=== PATIENT | male | born 1990 | race Caucasian/White ===

== ENCOUNTER 2016-11-24 07:29 | Emergency (ER) | payer MEDICAID ==
[~2016-11-24] VITALS: Ht 177.8 cm; Wt 78.0 kg
[~2016-11-24 07:29] MED LIST: CYCL1TAB29 PO; NAPR500T PO
[2016-11-24 07:32] VITALS: BP 105/55; PULSE 80; RESP 20; TEMP 98; O2SAT 100
[2016-11-24 07:39] VITALS: BP 118/67; PULSE 85; RESP 16; O2SAT 100
[2016-11-24] MEDS ORDERED: SODIUM CHLOR 0.9% 1000 ML INJ 1,000 ML IV SCH (07:53)
[2016-11-24] MEDS ORDERED: ONDANSETRON HCL 4 MG/2 ML VIAL IVP ONE (08:00)
[2016-11-24] MEDS ORDERED: LOPERAMIDE HCL 2 MG CAP PO ONE (08:00)
[2016-11-24] MEDS ORDERED: DICYCLOMINE HCL 20 MG/2 ML VIAL IM ONE (08:00)
[2016-11-24] MEDS ORDERED: SODIUM CHLORIDE 0.9% FLUSH 5 ML FLUSH IVF PRN (08:00)
[2016-11-24] MEDS ORDERED: KETOROLAC TROMETHAMINE 30 MG/ML (IVP) VIAL IV PUSH STA (08:00)
[2016-11-24] MEDS ORDERED: ZOFR4TAB3 SL (08:11)
[2016-11-24] MEDS ORDERED: LOPE2TAB3 PO (08:11)
[2016-11-24] MEDS ORDERED: BENT20TA PO (08:11)
--- NOTE | 2016-11-24 08:11 | PD ---
HPI Chief Complaint: GI Complaint Time Seen by Provider: 07:35 Travel History International Travel<30 days: No Contact w/Intl Traveler<30days: No Traveled to known affect area: No History of Present Illness HPI 26-year-old man, no past medical history, presents emergency department with nausea vomiting diarrhea abdominal cramping and generalized myalgias starting last night. He ate at the [employer] [facility] last night with his kids and woke up and melena vomiting diarrhea and cramping. He describes severe abdominal pain and cramping as well as severe 10 out of 10 pain throughout his entire body. No fevers. No blood in his stools. No history of previous similar symptoms. States his had a little bit of vomiting this morning but not as sick as he is. History Past Medical History Medical History: Denies Significant Hx Tetanus Vaccination: < 5 Years Past Surgical History Surgical History: No Previous Surgery Social History Alcohol Use: No Tobacco Use: No Allergies-Medications (Allergen,Severity, Reaction): Coded Allergies: No Known Allergies (Verified , 11/24/16) Reported Meds & Prescriptions Reported Meds & Active Scripts Active Loperamide (Loperamide HCl) 2 Mg Tab 2 Mg PO DIRECTED PRN One tablet after each loose stool. Not to exceed 8 tablets per day. Bentyl (Dicyclomine HCl) 20 Mg Tab 20 Mg PO QID PRN Zofran Odt (Ondansetron Odt) 4 Mg Tab 4 Mg SL Q8HR PRN May substitute non-ODT form. Review of Systems Except as stated in HPI: all other systems reviewed are Neg Physical Exam Narrative GENERAL: 26-year-old man, uncomfortable but nontoxic. SKIN: Warm and dry. CARDIOVASCULAR: Regular rate and rhythm. No murmur appreciated. RESPIRATORY: No accessory muscle use. Clear to auscultation. Breath sounds equal bilaterally. GASTROINTESTINAL: Abdomen is flat and soft. Moderate diffuse tenderness with voluntary guarding. No peritonitis. MUSCULOSKELETAL: No obvious deformities. No edema. NEUROLOGICAL: Awake and alert. No obvious cranial nerve deficits. Motor grossly within normal limits. Normal speech. PSYCHIATRIC: Appropriate mood and affect; insight and judgment normal. Data Data Last Documented VS Vital Signs Date Time Temp Pulse Resp B/P Pulse Ox O2 Delivery O2 Flow Rate FiO2 11/24/16 07:39 85 16 118/67 100 11/24/16 07:32 98.0 Room Air Orders Complete Blood Count With Diff (11/24/16 07:53) Comprehensive Metabolic Panel (11/24/16 07:53) Lipase (11/24/16 07:53) Iv Access Insert/Monitor (11/24/16 07:53) Ondansetron Inj (Zofran Inj) (11/24/16 08:00) Sodium Chlor 0.9% 1000 Ml Inj (Ns 1000 M (11/24/16 07:53) Sodium Chloride 0.9% Flush (Ns Flush) (11/24/16 08:00) Dicyclomine Inj (Bentyl Inj) (11/24/16 08:00) Loperamide (Imodium) (11/24/16 08:00) Ketorolac Inj (Toradol Inj) (11/24/16 08:00) Labs Laboratory Tests Test 11/24/16 08:13 White Blood Count 11.5 TH/MM3 Red Blood Count 4.76 MIL/MM3 Hemoglobin 14.7 GM/DL Hematocrit 42.6 % Mean Corpuscular Volume 89.5 FL Mean Corpuscular Hemoglobin 30.8 PG Mean Corpuscular Hemoglobin 34.5 % Concent Red Cell Distribution Width 12.8 % Platelet Count 165 TH/MM3 Mean Platelet Volume 9.2 FL Neutrophils (%) (Auto) 91.5 % Lymphocytes (%) (Auto) 4.6 % Monocytes (%) (Auto) 3.3 % Eosinophils (%) (Auto) 0.4 % Basophils (%) (Auto) 0.2 % Neutrophils # (Auto) 10.5 TH/MM3 Lymphocytes # (Auto) 0.5 TH/MM3 Monocytes # (Auto) 0.4 TH/MM3 Eosinophils # (Auto) 0.0 TH/MM3 Basophils # (Auto) 0.0 TH/MM3 CBC Comment DIFF FINAL Differential Comment Sodium Level 141 MEQ/L Potassium Level 3.5 MEQ/L Chloride Level 106 MEQ/L Carbon Dioxide Level 25.3 MEQ/L Anion Gap 10 MEQ/L Blood Urea Nitrogen 13 MG/DL Creatinine 0.88 MG/DL Estimat Glomerular Filtration 106 ML/MIN Rate Random Glucose 127 MG/DL Calcium Level 9.1 MG/DL Total Bilirubin 0.9 MG/DL Aspartate Amino Transf 11 U/L (AST/SGOT) Alanine Aminotransferase 17 U/L (ALT/SGPT) Alkaline Phosphatase 65 U/L Total Protein 7.6 GM/DL Albumin 4.1 GM/DL Lipase 101 U/L [facility] Medical Decision Making Medical Screen Exam Complete: Yes Emergency Medical Condition: Yes Interpretation(s) LABS: CBC remarkable for minimal leukocytosis. CMP is unremarkable Lipase is normal Differential Diagnosis Gastroenteritis, gastritis, appendicitis, colitis, opiate withdrawal, other Narrative Course Medical decision making 26 old male nausea vomiting diarrhea abdominal cramping and myalgias. Looks well. He does have a lot of abdominal tenderness diffusely, without any focality. Likely has appendicitis. He's been in the emergency department without calling gastritis in the past. He attributes it to food poisoning or possibly gastroenteritis. Given the tenderness, we'll check some labs. Vital signs are unremarkable. Likely supportive treatment. Diagnosis Primary Impression: Nausea vomiting and diarrhea Additional Instructions: Use Zofran as needed for nausea or vomiting. Use Bentyl as needed for abdominal cramping. Use loperamide as needed for diarrhea. Follow-up with your primary doctor for not completely well in the next 2-3 days. Return to the emergency department for any worsening abdominal pain, bloody diarrhea, or high fevers. Med/Other Pt SpecificInfo: Prescription(s) given, No Change to Meds Scripts Loperamide 2 Mg Tab2 Mg PO DIRECTED PRN (DIARRHEA) #8 TAB One tablet after each loose stool. Not to exceed 8 tablets per day. Prov:Jamie Kim MD 11/24/16 Dicyclomine (Bentyl)20 Mg Tab20 Mg PO QID PRN (ABDOMINAL CRAMPING) #20 TAB Prov:Jamie Kim MD 11/24/16 Ondansetron Odt (Zofran Odt)4 Mg Tab4 Mg SL Q8HR PRN (Nausea/Vomiting) #15 TAB May substitute non-ODT form. Prov:Jamie Kim MD 11/24/16 Disposition: 01 DISCHARGE HOME Condition: Stable Jamie Kim MD Nov 24, 2016 08:11
[2016-11-24 08:21] LABS: AUTOMATED NEUTROPHIL # 10.5 TH/MM3 (1.8-7.7); BASOPHIL % 0.2 % (0.0-2.0); EOSINOPHIL % 0.4 % (0.0-4.0); HEMATOCRIT 42.6 % (39.0-51.0); HEMO FLAGS DIFF FINAL; LYMPH % 4.6 % (9.0-44.0); LYMPHOCYTE # 0.5 TH/MM3 (1.0-4.8); MEAN CELL VOLUME 89.5 FL (80.0-100.0); MEAN CORPUSCULAR HEMOGLOBIN 30.8 PG (27.0-34.0); MEAN CORPUSCULAR HGB CONC 34.5 % (32.0-36.0); MONO % 3.3 % (0.0-8.0); NEUT % 91.5 % (16.0-70.0); PLATELET COUNT 165 TH/MM3 (150-450); RED BLOOD COUNT 4.76 MIL/MM3 (4.50-5.90); RED CELL DISTRIBUTION WIDTH 12.8 % (11.6-17.2); WHITE BLOOD COUNT 11.5 TH/MM3 (4.0-11.0)
[2016-11-24 08:30] VITALS: BP 108/60; PULSE 60; RESP 16; O2SAT 99
[2016-11-24 08:38] LABS: ALT (GPT) 17 U/L (12-78); ANION GAP 10 MEQ/L (5-15); AST (GOT) 11 U/L (15-37); BICARBONATE 25.3 MEQ/L (21.0-32.0); BLOOD UREA NITROGEN 13 MG/DL (7-18); CHLORIDE 106 MEQ/L (98-107); GLOMERULAR FILTRATION RATE 106 ML/MIN (>89); POTASSIUM 3.5 MEQ/L (3.5-5.1); SODIUM (NA) 141 MEQ/L (136-145)
[2016-11-24 08:41] LABS: ALKALINE PHOSPHATASE 65 U/L (45-117); TOTAL BILIRUBIN ADULT 0.9 MG/DL (0.2-1.0)
== END 2016-11-24 09:14 | disposition home or self-care (01) ==
LOC: NEPC 07:29
DX: R11.2 Nausea with vomiting, unspecified (principal); R19.7 Diarrhea, unspecified; R10.9 Unspecified abdominal pain; M79.1 Myalgia
CPT/HCPCS: 80053; 83690; 85025; 96361; 96372; 96374; 96375; 99284; J0500; J1885; J2405; J7030

== ENCOUNTER 2017-01-24 23:08 | Emergency (ER) | payer MEDICAID ==
[~2017-01-24] VITALS: Ht 177.8 cm; Wt 73.0 kg
[~2017-01-24 23:08] MED LIST changes: +BENT20TA PO; -CYCL1TAB29 PO; +LOPE2TAB3 PO; -NAPR500T PO; +ZOFR4TAB3 SL
[2017-01-24 23:12] VITALS: BP 118/82; PULSE 104; RESP 16; TEMP 99.2; O2SAT 100
--- NOTE | 2017-01-24 23:44 | PD ---
HPI Chief Complaint: ENT Complaint Time Seen by Provider: 23:41 Travel History International Travel<30 days: No Contact w/Intl Traveler<30days: No Traveled to known affect area: No History of Present Illness HPI 26-year-old male presents to emergency department with a three-day history of sore throat, fever chills, ear pain, cough, slight sputum production , nausea, vomiting, myalgias, arthralgias or general malaise. He states that he has not been able to eat for 3 days due to sore throat. He denies any abdominal pain. No dysuria or frequency. No diarrhea. No rashes or lesions. PFSH Past Medical History Narrative Medical Close head injury, chronic back pain Hx Anticoagulant Therapy: No Cardiovascular Problems: No Chemotherapy: No Cerebrovascular Accident: No Diabetes: No Diminished Hearing: No Respiratory: No Tetanus Vaccination: < 5 Years Past Surgical History Surgical History: No Previous Surgery Hysterectomy: No Social History Alcohol Use: No Tobacco Use: No Substance Use: Yes (MARIJUANA) Allergies-Medications (Allergen,Severity, Reaction): Coded Allergies: No Known Allergies (Verified , 01/24/17) Reported Meds & Prescriptions Reported Meds & Active Scripts Active Magic Mouthwash Adult Liq (Multi-Ingredient Mouthwash/Gargle) 120 Ml Susp 5 Ml SWISH-SWAL Q2HR Each 5mL contains: Nystatin 200,000units, Diphenhydramine 4.25mg, Viscous Lidocaine 10mg, Beauchamp syrup 0.8 mL Deltasone (Prednisone) 20 Mg Tab 20 Mg PO BID Loperamide (Loperamide HCl) 2 Mg Tab 2 Mg PO DIRECTED PRN One tablet after each loose stool. Not to exceed 8 tablets per day. Bentyl (Dicyclomine HCl) 20 Mg Tab 20 Mg PO QID PRN Zofran Odt (Ondansetron Odt) 4 Mg Tab 4 Mg SL Q8HR PRN May substitute non-ODT form. Review of Systems Except as stated in HPI: all other systems reviewed are Neg Physical Exam Narrative GENERAL: Well-developed, well-nourished in no acute distress. Nontoxic appearing. HEAD: Normocephalic, atraumatic. EYES: Pupils equal round and reactive. Extraocular motions intact. No scleral icterus. No injection or drainage. ENT: TMs clear without erythema. The external auditory canals clear. Nose: clear . Posterior pharynx is erythematous and moist. Positive tonsillar edema but no white exudate. Uvula midline. Airway patent. NECK: Trachea midline.Supple, nontender, moves head freely. No central bony tenderness or spasm. Positive cervical and tonsillar adenopathy CARDIOVASCULAR: Regular rate and rhythm without murmurs, gallops, or rubs. RESPIRATORY: Clear to auscultation. Breath sounds equal bilaterally. No wheezes , rales, or rhonchi. GASTROINTESTINAL: Abdomen soft, non-tender, nondistended. No hepato-splenomegaly , or palpable masses. No guarding. EXTREMITIES: No clubbing, cyanosis, or edema. No joint tenderness, effusion, or edema noted. BACK: Nontender without deformity or crepitance. No flank tenderness. Data Data Last Documented VS Vital Signs Date Time Temp Pulse Resp B/P Pulse Ox O2 Delivery O2 Flow Rate FiO2 01/24/17 23:12 99.2 104 16 118/82 100 Room Air Orders Influenzae A/B Antigen (01/24/17 23:39) Group A Rapid Strep Screen (01/24/17 23:39) Strep Culture (Group A) (01/24/17 23:52) Prednisone (Deltasone) (01/25/17 01:00) Al-Mag Hy-Si 40-40-4 Mg/Ml Liq (Mag-Al P (01/25/17 01:00) Lidocaine 2% Viscous (Xylocaine 2% Visco (01/25/17 00:54) MDM Medical Decision Making Medical Screen Exam Complete: Yes Emergency Medical Condition: Yes Medical Record Reviewed: Yes Interpretation(s) Rapid strep: Negative Influenza: Negative Differential Diagnosis MDM: High Differential diagnoses: Pneumonia, bronchitis, URI, influenza, strep throat Narrative Course Patient's given prednisone 40 mg and Maalox 30 mL and viscous lidocaine 10 mL by mouth This is acute viral pharyngitis, influenza-like illness Diagnosis Primary Impression: Acute viral pharyngitis Additional Impression: Influenza-like illness Patient Instructions: General Instructions Additional Instructions: Rest. Force fluids. Saltwater gargles. Tylenol and Advil. Chloraseptic [place] Cepastat lozenge. Prednisone and Magic mouthwash. Follow-up with a primary care doctor in one week. Return to the ER if any problems. Med/Other Pt SpecificInfo: Prescription(s) given Scripts Akbaxnik-Ljmxdabiyrfrphr-Bgrtqmuls Liq (Magic Mouthwash Adult Liq)120 Ml Susp5 Ml SWISH-SWAL Q2HR #120 ML Each 5mL contains: Nystatin 200,000units, Diphenhydramine 4.25mg, Viscous Lidocaine 10mg, Beauchamp syrup 0.8 mL Prov:Rosa Mann MD 01/25/17 Prednisone (Deltasone)20 Mg Tab20 Mg PO BID #10 TAB Prov:Rosa Mann MD 01/25/17 Disposition: 01 DISCHARGE HOME Condition: Stable Segundo Van Jan 24, 2017 23:44
[2017-01-25] MEDS ORDERED: MAGICADU2 SWISH-SWAL (00:54)
[2017-01-25] MEDS ORDERED: LIDOCAINE VISCOUS 2% SOLN 15 ML UDC SWISH-SWAL STA (00:54)
[2017-01-25] MEDS ORDERED: PRED-503 PO (00:54)
[2017-01-25] MEDS ORDERED: ALUMINUM/MAGNESIUM/SIMETH 30 ML CUP PO ONE (01:00)
[2017-01-25] MEDS ORDERED: predniSONE 20 MG TAB PO ONE (01:00)
== END 2017-01-25 02:57 | disposition home or self-care (01) ==
LOC: NEPB 23:08
DX: J02.8 Acute pharyngitis due to other specified organisms (principal); J00 Acute nasopharyngitis [common cold]
CPT/HCPCS: 87081; 87804; 87880; 99283; J7512

== ENCOUNTER 2017-05-31 16:55 | Emergency (ER) | payer MEDICAID ==
[~2017-05-31] VITALS: Ht 177.8 cm; Wt 78.0 kg
[~2017-05-31 16:55] MED LIST changes: +MAGICADU2 SWISH-SWAL; +PRED-503 PO
[2017-05-31 16:56] VITALS: BP 113/69; PULSE 87; RESP 14; TEMP 98; O2SAT 99
--- NOTE | 2017-05-31 17:59 | PD ---
HPI Chief Complaint: Complaint Time Seen by Provider: 17:34 Travel History International Travel<30 days: No Contact w/Intl Traveler<30days: No Traveled to known affect area: No History of Present Illness HPI 27-year-old male here with his girlfriend for evaluation of dysuria and right inguinal pain. Patient reports history of chlamydia infection for which he was treated about a year ago. For the last 2 days he has been having dysuria and penile discharge. Since yesterday he has been having extreme pain on the tip of his penis/foreskin and has noticed tiny punctate lesions. He has been applying hydrogen peroxide to this area, however this causes increased pain. Patient also reports in his right inguinal area there is a lump that is painful. No fevers or chills. No nausea or vomiting. Last bowel movement was earlier today. PFSH Past Medical History Medical History: Denies Significant Hx Hx Anticoagulant Therapy: No Cardiovascular Problems: No Chemotherapy: No Cerebrovascular Accident: No Diabetes: No Diminished Hearing: No Respiratory: No Past Surgical History Surgical History: No Previous Surgery Hysterectomy: No Social History Alcohol Use: Yes (occ) Tobacco Use: No Substance Use: Yes (MARIJUANA) Allergies-Medications (Allergen,Severity, Reaction): Coded Allergies: No Known Allergies (Verified , 05/31/17) Reported Meds & Prescriptions Reported Meds & Active Scripts Active No Active Prescriptions or Reported Medications Review of Systems Except as stated in HPI: all other systems reviewed are Neg Physical Exam Narrative GENERAL: Well-developed, well-nourished, no apparent distress. SKIN: Focused skin assessment warm/dry. No rash on palms. CARDIOVASCULAR: Regular rate and rhythm. RESPIRATORY: No accessory muscle use. GASTROINTESTINAL: Abdomen soft, non-tender, nondistended. : Normal scrotum and testicles without masses, without skin color changes, without tenderness. Tip of penis with moderate amount of yellowish discharge. Foreskin with several small approximately 1 mm ulcerations. No vesicular lesions. Bilateral inguinal regions with palpable/tender lymphadenopathy. MUSCULOSKELETAL: No obvious deformities. No clubbing. No cyanosis. No edema. NEUROLOGICAL: Awake and alert. No obvious cranial nerve deficits. Motor grossly within normal limits. Normal speech. PSYCHIATRIC: Appropriate mood and affect; insight and judgment normal. Data Data Last Documented VS Vital Signs Date Time Temp Pulse Resp B/P Pulse Ox O2 Delivery O2 Flow Rate FiO2 05/31/17 17:08 18 7/23/17 16:56 98.0 87 113/69 99 Orders Basic Metabolic Panel (Bmp) (05/31/17 17:49) Complete Blood Count With Diff (05/31/17 17:49) Iv Access Insert/Monitor (05/31/17 17:49) Ecg Monitoring (05/31/17 17:49) Oximetry (05/31/17 17:49) Sodium Chloride 0.9% Flush (Ns Flush) (05/31/17 18:00) Rapid Plasmin Reagin Screen (05/31/17 17:49) Urinalysis - C+S If Indicated (05/31/17 17:49) Gc And Chlamydia Pcr (05/31/17 17:49) Azithromycin Powd Pack (Zithromax Powd P (05/31/17 18:00) Ceftriaxone Inj (Rocephin Inj) (05/31/17 18:00) Lidocaine 1% Inj (50 Ml) (Xylocaine 1% I (05/31/17 18:00) Ketorolac Inj (Toradol Inj) (05/31/17 18:00) Hsv 1,2 Abs Igm (05/31/17 17:49) Lidocaine 2% Jelly (Xylocaine 2% Jelly) (05/31/17 18:00) Acetamin-Hydrocod 325-5 Mg (Thomas 5-325 (05/31/17 19:15) Urine Culture (05/31/17 18:45) Labs Laboratory Tests Test 05/31/17 05/31/17 18:15 18:45 White Blood Count 6.3 TH/MM3 Red Blood Count 4.43 MIL/MM3 Hemoglobin 14.2 GM/DL Hematocrit 41.0 % Mean Corpuscular Volume 92.5 FL Mean Corpuscular Hemoglobin 32.0 PG Mean Corpuscular Hemoglobin 34.6 % Concent Red Cell Distribution Width 12.8 % Platelet Count 185 TH/MM3 Mean Platelet Volume 8.8 FL Neutrophils (%) (Auto) 49.1 % Lymphocytes (%) (Auto) 30.9 % Monocytes (%) (Auto) 13.3 % Eosinophils (%) (Auto) 5.4 % Basophils (%) (Auto) 1.3 % Neutrophils # (Auto) 3.1 TH/MM3 Lymphocytes # (Auto) 2.0 TH/MM3 Monocytes # (Auto) 0.8 TH/MM3 Eosinophils # (Auto) 0.3 TH/MM3 Basophils # (Auto) 0.1 TH/MM3 CBC Comment DIFF FINAL Differential Comment Sodium Level 139 MEQ/L Potassium Level 4.4 MEQ/L Chloride Level 106 MEQ/L Carbon Dioxide Level 27.6 MEQ/L Anion Gap 5 MEQ/L Blood Urea Nitrogen 17 MG/DL Creatinine 0.96 MG/DL Estimat Glomerular Filtration 95 ML/MIN Rate Random Glucose 105 MG/DL Calcium Level 8.7 MG/DL Urine Color YELLOW Urine Turbidity CLEAR Urine pH 7.5 Urine Specific [place] 1.029 Urine Protein TRACE mg/dL Urine Glucose (UA) NEG mg/dL Urine Ketones NEG mg/dL Urine Occult Blood NEG Urine Nitrite NEG Urine Bilirubin NEG Urine Urobilinogen 2.0 MG/DL Urine Leukocyte Esterase MOD Urine RBC 3 /hpf Urine WBC 11 /hpf Urine Squamous Epithelial <1 /hpf Cells Microscopic Urinalysis Comment CULTURE INDICATED MDM Medical Decision Making Medical Screen Exam Complete: Yes Emergency Medical Condition: Yes Differential Diagnosis Urethritis, gonorrhea, chlamydia, syphilis, herpes Narrative Course Vital signs are within normal limits. CBC is unremarkable. BMP is unremarkable. UA shows moderate leukocyte esterase, 11 WBCs, negative nitrites, negative leukocyte Estrace. Urine gonorrhea and chlamydia were sent. RPR and HSV blood work was also sent. Lesions do not appear typical to HSV and are likely secondary to irritation from hydrogen peroxide and saltwater use by the patient and his girlfriend. Patient does have some bilateral inguinal lymphadenopathy. He was empirically treated for gonorrhea and chlamydia with IM Rocephin and oral azithromycin. He will be discharged home with pain medication. Urology follow-up this week. He was informed on when to return to the emergency department. He verbalizes understanding and agreement with plan. Diagnosis Primary Impression: Urethritis Referrals: Bahman De La Garza DO 3 days Urologist Additional Instructions: Follow-up with a primary care physician this week. Follow-up with a urologist this week. Return to the emergency room if worsening symptoms or any other concerns. Scripts Phenazopyridine (Pyridium)100 Mg [id number] Mg PO Q8H PRN (DYSURIA) #15 TAB Ref 0 Prov:Dario Melara MD 05/31/17 Hydrocodone-Acetaminophen (Lortab)5-325 Mg Tab1 Tab PO Q6H PRN (PAIN) #15 TAB Ref 0 Prov:Dario Melara MD 05/31/17 Disposition: 01 DISCHARGE HOME Condition: Stable Dario Melara MD May 31, 2017 17:59
[2017-05-31] MEDS ORDERED: SODIUM CHLORIDE 0.9% FLUSH 10 ML FLUSH IV FLUSH PRN (18:00)
[2017-05-31] MEDS ORDERED: AZITHROMYCIN PWD FOR SUSP 1 GM PACKET PO ONE (18:00)
[2017-05-31] MEDS ORDERED: KETOROLAC TROMETHAMINE 30 MG/ML (IVP) VIAL IV PUSH ONE (18:00)
[2017-05-31] MEDS ORDERED: LIDOCAINE 2% JELLY 30 ML TUBE TOPICAL ONE (18:00)
[2017-05-31] MEDS ORDERED: LIDOCAINE HCL 1% 50 ML VIAL XX ONE (18:00)
[2017-05-31] MEDS ORDERED: cefTRIAXone 250 MG VIAL IM ONE (18:00)
[2017-05-31 18:38] LABS: AUTOMATED NEUTROPHIL # 3.1 TH/MM3 (1.8-7.7); BASOPHIL # 0.1 TH/MM3 (0-0.2); BASOPHIL % 1.3 % (0.0-2.0); EOSINOPHIL # 0.3 TH/MM3 (0-0.4); EOSINOPHIL % 5.4 % (0.0-4.0); HEMO FLAGS DIFF FINAL; LYMPH % 30.9 % (9.0-44.0); MEAN CELL VOLUME 92.5 FL (80.0-100.0); MEAN CORPUSCULAR HGB CONC 34.6 % (32.0-36.0); MONO % 13.3 % (0.0-8.0); NEUT % 49.1 % (16.0-70.0); PLATELET COUNT 185 TH/MM3 (150-450); RED BLOOD COUNT 4.43 MIL/MM3 (4.50-5.90); RED CELL DISTRIBUTION WIDTH 12.8 % (11.6-17.2); WHITE BLOOD COUNT 6.3 TH/MM3 (4.0-11.0)
[2017-05-31 19:07] LABS: BICARBONATE 27.6 MEQ/L (21.0-32.0)
[2017-05-31 19:10] LABS: POTASSIUM 4.4 MEQ/L (3.5-5.1)
[2017-05-31] MEDS ORDERED: ACETAMINOPHEN/HYDROcodone 325 MG/5 MG TAB PO ONE (19:15)
[2017-05-31 19:48] LABS: BLOOD, URINE NEG (NEG); COMMENT (UR) CULTURE INDICATED; CULTURE IF INDICATED CULTURE INDICATED; GLUCOSE,URINE NEG (NEG); KETONE, URINE NEG (NEG); NITRITE,URINE NEG (NEG); PH, URINE 7.5 (5.0-8.5); SQUAMOUS EPITHELIAL CELL URINE <1 /hpf (0-5); URINE COLOR YELLOW (YELLW/STRAW)
[2017-05-31] MEDS ORDERED: HYDR-3533 PO (20:03)
[2017-05-31] MEDS ORDERED: PHEN0.4T PO (20:03)
[2017-05-31 23:18] LABS: CHLAMYDIA PCR NOT DETECTED (NOT DETECT); NEISSERIA PCR NOT DETECTED (NOT DETECT)
[2017-06-01] MEDS ORDERED: DOXY100T PO (17:42)
[2017-06-01] MEDS ORDERED: ZOVI400T PO (17:42)
[2017-06-01] MEDS ORDERED: LOTR15T TOPICAL (17:42)
[2017-06-01] MEDS ORDERED: LIDO1GEL TP (17:42)
[2017-06-03 18:28] LABS: HSV IGM 1 TITER ND TITER; HSV IGM II TITER ND TITER
[2017-06-03 23:52] LABS: HSV2 IGM IFA NEGATIVE (())
== END 2017-05-31 20:29 | disposition home or self-care (01) ==
LOC: NEPD 16:55
DX: N28.89 Other specified disorders of kidney and ureter (principal); Z11.3 Encounter for screening for infections with a predominantly sexual mode of transmission
CPT/HCPCS: 80048; 81001; 85025; 86592; 86695; 86696; 87086; 87491; 87591; 96372; 96374; 99284; J0696; J1885

== ENCOUNTER 2017-06-01 15:17 | Emergency (ER) | payer MEDICAID ==
[~2017-06-01] VITALS: Ht 177.8 cm; Wt 78.0 kg
[~2017-06-01 15:17] MED LIST changes: -BENT20TA PO; +HYDR-3533 PO; -LOPE2TAB3 PO; -MAGICADU2 SWISH-SWAL; +PHEN0.4T PO; -PRED-503 PO; -ZOFR4TAB3 SL
[2017-06-01 15:21] VITALS: BP 104/59; PULSE 66; RESP 18; TEMP 98.8; O2SAT 9; O2SAT 99
[2017-06-01] MEDS ORDERED: LIDO1GEL TP (17:42)
[2017-06-01] MEDS ORDERED: DOXY100T PO (17:42)
[2017-06-01] MEDS ORDERED: ZOVI400T PO (17:42)
[2017-06-01] MEDS ORDERED: LOTR15T TOPICAL (17:42)
--- NOTE | 2017-06-01 17:42 | PD ---
HPI Chief Complaint: Complaint Time Seen by Provider: 17:19 Travel History International Travel<30 days: No Contact w/Intl Traveler<30days: No Traveled to known affect area: No History of Present Illness HPI 27-year-old male complains of dysuria and painful rash on the tip of the penis. Patient was seen in emergency room yesterday and treated for urethritis. Patient was advised to apply gahf-crv-edzjrgf antibiotic ointment to the tip of the penis, the foreskin and take Pyridium for pain. Patient states this had persistent dysuria and pain to the tip of the penis. Patient was given Rocephin IM and Zithromax by mouth yesterday. GC and chlamydia PCR negative. RPR nonreactive. PFSH Past Medical History Hx Anticoagulant Therapy: No Cardiovascular Problems: No Chemotherapy: No Cerebrovascular Accident: No Diabetes: No Diminished Hearing: No Respiratory: No Past Surgical History Hysterectomy: No Social History Alcohol Use: Yes (occ) Tobacco Use: No Substance Use: Yes (MARIJUANA) Allergies-Medications (Allergen,Severity, Reaction): Coded Allergies: No Known Allergies (Verified , 06/01/17) Reported Meds & Prescriptions Reported Meds & Active Scripts Active Pyridium (Phenazopyridine HCl) 100 Mg Tab 100 Mg PO Q8H PRN Lortab (Hydrocodone-Acetaminophen) 5-325 Mg Tab 1 Tab PO Q6H PRN Review of Systems General / Constitutional: No: Fever Eyes: No: Visual changes HENT: No: Headaches Cardiovascular: No: Chest Pain or Discomfort Respiratory: No: Shortness of Breath Gastrointestinal: No: Abdominal Pain Genitourinary: Positive: Dysuria Musculoskeletal: No: Pain Skin: No Rash Neurologic: No: Weakness Psychiatric: No: Depression Endocrine: No: Polydipsia Hematologic/Lymphatic: No: Easy Bruising Physical Exam Narrative GENERAL: Well-nourished, well-developed patient. SKIN: Focused skin assessment warm/dry. HEAD: Normocephalic. EYES: No scleral icterus. No injection or drainage. NECK: Supple, trachea midline. No JVD or lymphadenopathy. CARDIOVASCULAR: Regular rate and rhythm without murmurs, gallops, or rubs. RESPIRATORY: Breath sounds equal bilaterally. No accessory muscle use. GASTROINTESTINAL: Abdomen soft, non-tender, nondistended. MUSCULOSKELETAL: No cyanosis, or edema. BACK: Nontender without obvious deformity. No CVA tenderness. exam: Patient has mild right inguinal lymphadenopathy. Patient has irritated rash on the foreskin of the penis. Mild penile discharge noted. Data Data Last Documented VS Vital Signs Date Time Temp Pulse Resp B/P Pulse Ox O2 Delivery O2 Flow Rate FiO2 06/01/17 15:21 98.8 66 18 104/59 99 Room Air MDM Medical Decision Making Medical Screen Exam Complete: Yes Emergency Medical Condition: Yes Differential Diagnosis Differential diagnosis including genital herpes, cellulitis, tenia infection. Narrative Course 27-year-old male with irritating rash on the foreskin of the penis and dysuria. Patient was treated for urethritis. Diagnosis Primary Impression: Urethritis Patient Instructions: General Instructions Additional Instructions: Doxycycline as directed. Zovirax as directed. Viscous lidocaine as directed. Lotrisone as directed. Follow-up with urologist if persistent problem. Return if worse. Med/Other Pt SpecificInfo: Prescription(s) given Scripts Betamethasone-Clotrimazole Topical (Lotrisone Topical)1-0.05% Cream1 Applic TOPICAL BID #15 GM Ref 0 Prov:Nolberto Adame MD 06/01/17 Lidocaine Topical (Lido Rx Topical)3 % Jel1 Applic TP Q4-6H #1 Prov:Nolberto Adame MD 06/01/17 Doxycycline Hyclate 100 Mg [id number] Mg PO BID #14 TAB Prov:Nolberto Adame MD 06/01/17 Acyclovir (Zovirax)400 Mg [id number] Mg PO TID #21 TAB Ref 0 Prov:Nolberto Adame MD 06/01/17 Disposition: 01 DISCHARGE HOME Condition: Stable Nolberto Adame MD Jun 01, 2017 17:42
== END 2017-06-01 18:21 | disposition home or self-care (01) ==
LOC: NEPD 15:17
DX: N34.2 Other urethritis (principal); Z79.899 Other long term (current) drug therapy
CPT/HCPCS: 99284

== ENCOUNTER 2017-07-05 05:15 | Inpatient (IN) | payer MEDICAID, OTHER ==
[2017-07-05] VITALS (10 sets, daily range): BP systolic 103–139; BP diastolic 64–80; PULSE 42–104; RESP 15–28; TEMP 98.2–98.6; O2SAT 95–100
[~2017-07-05] VITALS: Ht 175.3 cm; Wt 73.6 kg
[~2017-07-05 05:15] MED LIST changes: +DOXY100T PO; +LIDO1GEL TP; +LOTR15T TOPICAL; +ZOVI400T PO
[2017-07-05] MEDS ORDERED: TETANUS/DIPHTHERIA TOXOID ADULT 0.5 ML VIAL IM ONE (05:45)
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
[2017-07-05] MEDS ORDERED: LIDOCAINE HCL 1% 50 ML VIAL INFIL ONE (06:00)
--- NOTE | 2017-07-05 06:26 | PD ---
Physical Exam Date Seen by Provider: Jul 05, 2017 Time Seen by Provider: 06:23 Data Data Last Documented VS Vital Signs Date Time Temp Pulse Resp B/P (MAP) Pulse Ox O2 Delivery O2 Flow Rate FiO2 07/05/17 05:17 98.6 104 16 113/78 (90) [address] Brain W/O Iv Contrast(Rout) (07/05/17 05:24) Tetanus/Diphtheria Tox Adult (Tetanus/Di (07/05/17 05:45) Ct Cerv Spine W/O Contrast (07/05/17 05:40) Lidocaine 1% Inj (50 Ml) (Xylocaine 1% I (07/05/17 06:00) MDM Medical Record Reviewed: Yes Supervised Visit with MONTSE: Yes Differential Diagnosis MDM: High Differential diagnoses: Fracture, sprain, strain, dislocation, contusion, neurovascular injury Narrative Course Patient scalp lacerations closed with estrellita. Procedures Procedure Narrative LACERATION LOCATION: Right posterior scalp LENGTH: 3 cm NUMBER OF STITCHES/ESTRELLITA: 4 REPAIR: The area of the laceration was prepped with Betadine and sterilely draped. The laceration was infiltrated with 1% lidocaine. The wound was copiously irrigated and explored without evidence of foreign body, tendon injury or neurovascular injury. The wound was closed using estrellita. This was a - layer repair. A sterile dressing was applied. The patient was advised to keep the dressing clean and dry. Patient tolerated the procedure well. Diagnosis Primary Impression: Closed head injury without loss of consciousness Qualified Codes: S09.90XA - Unspecified injury of head, initial encounter Additional Impression: Scalp laceration Qualified Codes: S01.01XA - Laceration without foreign body of scalp, initial encounter Patient Instructions: General Instructions Additional Instruction: Rest. Elevation. Tylenol and Advil for pain. Head precautions. Daily wound care with soap, water, Neosporin. Sutures out in 10 days. Return to the ER if any problems. Disposition: [address] LAW ENFORCEMNT Condition: Stable Segundo Van Jul 05, 2017 06:26
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
[2017-07-05 07:10] LABS: AUTOMATED NEUTROPHIL # 9.1 TH/MM3 (1.8-7.7); BASOPHIL % 0.3 % (0.0-2.0); EOSINOPHIL % 0.1 % (0.0-4.0); HEMATOCRIT 44.1 % (39.0-51.0); HEMO FLAGS DIFF FINAL; LYMPH % 14.6 % (9.0-44.0); LYMPHOCYTE # 1.7 TH/MM3 (1.0-4.8); MEAN CELL VOLUME 93.5 FL (80.0-100.0); MEAN CORPUSCULAR HEMOGLOBIN 31.2 PG (27.0-34.0); MEAN CORPUSCULAR HGB CONC 33.4 % (32.0-36.0); MONO % 4.3 % (0.0-8.0); NEUT % 80.7 % (16.0-70.0); PLATELET COUNT 185 TH/MM3 (150-450); RED BLOOD COUNT 4.72 MIL/MM3 (4.50-5.90); RED CELL DISTRIBUTION WIDTH 13.2 % (11.6-17.2); WHITE BLOOD COUNT 11.3 TH/MM3 (4.0-11.0)
[2017-07-05 07:15] LABS: APTT (PATIENT) 22.3 SEC (24.3-30.1); INTERNATIONAL NORMALIZED RATIO 0.9 RATIO; PROTHROMBIN TIME - PATIENT 10.2 SEC (9.8-11.6)
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
[2017-07-05 07:29] LABS: ALKALINE PHOSPHATASE 58 U/L (45-117); TOTAL BILIRUBIN ADULT 0.4 MG/DL (0.2-1.0)
[2017-07-05] MEDS ORDERED: ONDANSETRON HCL 4 MG/2 ML VIAL IV PRN (07:45)
[2017-07-05] MEDS ORDERED: MAGNESIUM HYDROXIDE SUSP 30 ML CUP PO PRN (07:45)
[2017-07-05] MEDS ORDERED: BISACODYL 10 MG SUPP RECTAL PRN (07:45)
[2017-07-05] MEDS ORDERED: LACTULOSE SYRUP 20 GM/30 ML CUP PO PRN (07:45)
[2017-07-05] MEDS ORDERED: RESP: ALBUTEROL 2.5 MG/3 ML NEB (PRN) INH (07:45)
[2017-07-05] MEDS ORDERED: MISCELLANEOUS NURSING INFORMATION XX SCH (07:45)
[2017-07-05] MEDS ORDERED: SODIUM CHLORIDE 0.9% FLUSH 10 ML FLUSH IV FLUSH PRN (07:45)
[2017-07-05] MEDS ORDERED: CHLORHEXIDINE GLUCONATE 2 % 1 PACK (2 CLOTHS) TOP PRN (07:45)
[2017-07-05] MEDS ORDERED: SENNOSIDES 8.6 MG TAB PO PRN (07:45)
[2017-07-05 07:47] LABS: ALT (GPT) 32 U/L (12-78); ANION GAP 9 MEQ/L (5-15); AST (GOT) 28 U/L (15-37); BICARBONATE 25.2 MEQ/L (21.0-32.0); BLOOD UREA NITROGEN 12 MG/DL (7-18); CHLORIDE 110 MEQ/L (98-107); GLOMERULAR FILTRATION RATE 82 ML/MIN (>89); SODIUM (NA) 144 MEQ/L (136-145)
[2017-07-05 07:52] LABS: POTASSIUM 4.1 MEQ/L (3.5-5.1)
[2017-07-05] MEDS: ACETAMINOPHEN 325 MG TAB PO PRN ×3 (07:59→16:24)
[2017-07-05] MEDS: SODIUM CHLORIDE 0.9% FLUSH 10 ML FLUSH IV FLUSH SCH ×2 (09:00→20:36)
[2017-07-05] MEDS: PANTOPRAZOLE SOD 40 MG DELAYED RELEASE TAB PO SCH (09:04)
[2017-07-05] MEDS: DOCUSATE SODIUM 50 MG/SENNA 8.6 MG TAB PO SCH ×2 (09:04→20:36)
[2017-07-05] MEDS: MULTIVITAMIN TAB PO SCH (09:04)
[2017-07-05] MEDS: THIAMINE HCL 100 MG TAB PO SCH (09:04)
[2017-07-05] MEDS ORDERED: ACETAMINOPHEN/HYDROcodone 325 MG/5 MG TAB PO PRN (13:15)
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
[2017-07-05] MEDS: ACETAMINOPHEN/HYDROcodone 325 MG/5 MG TAB PO PRN (20:36)
[2017-07-06] VITALS (10 sets, daily range): BP systolic 101–125; BP diastolic 61–77; PULSE 50–75; RESP 18–24; TEMP 98–98.6; O2SAT 97–100
[2017-07-06] MEDS: CHLORHEXIDINE GLUCONATE 2 % 1 PACK (2 CLOTHS) TOP SCH (03:41)
[2017-07-06 05:17] LABS: BICARBONATE 30.3 MEQ/L (21.0-32.0); POTASSIUM 3.9 MEQ/L (3.5-5.1)
[2017-07-06] MEDS: SODIUM CHLORIDE 0.9% FLUSH 10 ML FLUSH IV FLUSH SCH ×2 (07:16→21:00)
[2017-07-06] MEDS: PANTOPRAZOLE SOD 40 MG DELAYED RELEASE TAB PO SCH (07:31)
[2017-07-06] MEDS: THIAMINE HCL 100 MG TAB PO SCH (07:31)
[2017-07-06] MEDS: MULTIVITAMIN TAB PO SCH (07:31)
[2017-07-06] MEDS: DOCUSATE SODIUM 50 MG/SENNA 8.6 MG TAB PO SCH (07:31)
[2017-07-06] MEDS: ACETAMINOPHEN/HYDROcodone 325 MG/5 MG TAB PO PRN ×3 (07:31→20:15)
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
--- NOTE | 2017-07-06 22:38 | RADRPT ---
EXAM DATE/TIME: 07/06/2017 21:05 [place] COMPARISON: CT BRAIN W/O CONTRAST, October 15, 2016, 20:55. CT BRAIN W/O CONTRAST, July 05, 2017, 5:53. INDICATIONS : Follow up hemorrhage. RADIATION DOSE: 50.01 CTDIvol (mGy) MEDICAL HISTORY : None SURGICAL HISTORY : None. ENCOUNTER: Subsequent ACUITY: 1 day PAIN SCALE: 10/10 LOCATION: cranial TECHNIQUE: Multiple contiguous axial images were obtained of the head. Using automated exposure control and adj ustment of the mA and/or kV according to patient size, radiation dose was kept as low as reasonably a chievable to obtain optimal diagnostic quality images. DICOM format image data is available electro nically for review and comparison. FINDINGS: CEREBRUM: There continue to be small 0.5 cm areas of focal high density in the left superior parietal lobe and at the right superior frontoparietal region. The ventricles are normal for age. No evidence of midli ne shift, mass lesion, or acute infarction. No extra-axial fluid collections are seen. POSTERIOR FOSSA: The cerebellum and brainstem are intact. The 4th ventricle is midline. The cerebellopontine angle i s unremarkable. EXTRACRANIAL: The visualized portion of the orbits is intact. Skin estrellita are seen over the right parietal scalp. There is mild soft tissue swelling of the right parietal scalp. SKULL: The calvaria is intact. No evidence of skull fracture. CONCLUSION: 1. 2 persistent small area of parenchymal hemorrhage seen over the convexities. These are unchanged. 2. Parietal scalp injury. Joey Romero MD on July 06, 2017 at 22:33 Board Certified Radiologist. This report was verified electronically.
[2017-07-07 00:52] VITALS: BP 123/68; PULSE 50; RESP 16; TEMP 98; O2SAT 98
[2017-07-07] MEDS: ACETAMINOPHEN/HYDROcodone 325 MG/5 MG TAB PO PRN ×2 (03:14→09:19)
[2017-07-07] MEDS: CHLORHEXIDINE GLUCONATE 2 % 1 PACK (2 CLOTHS) TOP SCH (04:00)
[2017-07-07 05:14] VITALS: BP 102/69; PULSE 63; RESP 18; TEMP 98.2; O2SAT 99
[2017-07-07 08:52] VITALS: BP_SYST 108; BP_SYST 126; BP_DIAS 57; BP_DIAS 64; PULSE 58; PULSE 63; RESP 16; RESP 18; TEMP 98.2; TEMP 98.4; O2SAT 94; O2SAT 98
[2017-07-07] MEDS: PANTOPRAZOLE SOD 40 MG DELAYED RELEASE TAB PO SCH (09:00)
[2017-07-07] MEDS: THIAMINE HCL 100 MG TAB PO SCH (09:00)
[2017-07-07] MEDS: MULTIVITAMIN TAB PO SCH (09:19)
[2017-07-07] MEDS: SODIUM CHLORIDE 0.9% FLUSH 10 ML FLUSH IV FLUSH SCH (09:20)
[2017-07-07] MEDS ORDERED: ACET1TAB86 PO (10:03)
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
[2017-07-07 10:19] VITALS: RESP 18
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
== END 2017-07-07 11:40 | disposition home or self-care (01) | DRG 87 ==
LOC: NEPC 05:15 → NEDA 07:16 → N03A 09:40 → N05A 07-06 16:23 → N03A 07-06 16:23
PROVIDERS: ADMIT Hospitalist; ATTEND Hospitalist
PROC: 0HQ0XZZ Repair Scalp Skin, External Approach (ICD-10-PCS; principal; 2017-07-05)
DX: S06.6X0A Traumatic subarachnoid hemorrhage without loss of consciousness, initial encounter (principal); F10.129 Alcohol abuse with intoxication, unspecified; S01.01XA Laceration without foreign body of scalp, initial encounter; X58.XXXA Exposure to other specified factors, initial encounter
CPT/HCPCS: 12002; 70450; 72125; 80048; 80053; 85025; 85610; 85730; 87641; 90471; 90714

== ENCOUNTER 2017-07-15 11:07 | Emergency (ER) | payer MEDICAID, OTHER ==
[~2017-07-15] VITALS: Ht 177.8 cm; Wt 77.0 kg
[~2017-07-15 11:07] MED LIST changes: +ACET1TAB86 PO; -DOXY100T PO; -HYDR-3533 PO; -LIDO1GEL TP; -LOTR15T TOPICAL; -PHEN0.4T PO; -ZOVI400T PO
[2017-07-15 11:08] VITALS: BP 108/70; PULSE 62; RESP 20; TEMP 97.9; O2SAT 99
--- NOTE | 2017-07-15 11:18 | PD ---
HPI Chief Complaint: Wound/Suture/Staple Re-Check Time Seen by Provider: 11:16 Travel History International Travel<30 days: No Contact w/Intl Traveler<30days: No Traveled to known affect area: No History of Present Illness HPI 27-year-old male presents to emergency department requesting staple removal from back of his head. Estrellita were placed July 05. He denies fever, vomiting. Denies drainage from the wound site. Has no other medical complaints. No known allergies. Symptoms are mild in severity. No other modifying factors or associated signs and symptoms. PFSH Past Medical History Hx Anticoagulant Therapy: No Cancer: No Cardiovascular Problems: No Chemotherapy: No Cerebrovascular Accident: No Diabetes: No Diminished Hearing: No Endocrine: No Genitourinary: No Immune Disorder: No Musculoskeletal: No Neurologic: No Psychiatric: No Reproductive: No Respiratory: No Past Surgical History Hysterectomy: No Social History Alcohol Use: Yes Tobacco Use: No Substance Use: Yes Allergies-Medications (Allergen,Severity, Reaction): Coded Allergies: No Known Allergies (Verified , 07/05/17) Reported Meds & Prescriptions Reported Meds & Active Scripts Active Eq Acetaminophen (Acetaminophen) 325 Mg Tab 650 Mg PO Q6H PRN Review of Systems Except as stated in HPI: all other systems reviewed are Neg Physical Exam Narrative GENERAL: Well-nourished, well-developed male patient, in no acute distress SKIN: Warm and dry. Right parietal occipital area of scalp with wound that is well approximated with estrellita intact; without erythema, edema, drainage. No signs of infection. HEAD: Atraumatic. Normocephalic. EYES: Pupils equal and round. No scleral icterus. No injection or drainage. ENT: Mucosa pink and moist. Airway patent. NECK: Trachea midline. CARDIOVASCULAR: Regular rate. RESPIRATORY: No accessory muscle use. GASTROINTESTINAL: Flat. MUSCULOSKELETAL: No obvious deformities. No clubbing. No cyanosis. No edema. NEUROLOGICAL: Awake and alert. Oriented 3. No obvious cranial nerve deficits. Motor grossly within normal limits. Normal speech. PSYCHIATRIC: Appropriate mood and affect; insight and judgment normal. Data Data Last Documented VS Vital Signs Date Time Temp Pulse Resp B/P (MAP) Pulse Ox O2 Delivery O2 Flow Rate FiO2 07/15/17 11:08 97.9 62 20 108/70 (83) 99 Room Air MDM Medical Decision Making Medical Screen Exam Complete: Yes Emergency Medical Condition: Yes Medical Record Reviewed: Yes Differential Diagnosis Staple removal, stitch removal, medical clearance, wound recheck Narrative Course 27-year-old male presents for staple removal. No signs of infection. Wound is well approximated with estrellita intact. Patient is afebrile and nontoxic- appearing. Denies fever, vomiting. Estrellita removed. Patient tolerated well. Instructed patient to follow up with primary care provider. Patient verbalizes understanding and agreement with treatment plan. Patient is medically cleared and stable for discharge. Discussed reasons to return to the emergency department. Patient agrees with treatment plan. The patients vital signs are stable and the patient is stable for outpatient follow-up and treatment. Patient discharged home, stable and in no acute distress. Diagnosis Primary Impression: Encounter for removal of estrellita Referrals: Primary Care Physician Patient Instructions: Acute Wound Care (DC), General Instructions Departure Forms: Tests/Procedures, Work Release Enter return to work date: Jul 16, 2017 Additional Instructions: Keep area clean and dry Follow up with primary care provider Return to the emergency department immediately if worsening of symptoms Med/Other Pt SpecificInfo: No Meds Exist/No RX given Disposition: 01 DISCHARGE HOME Condition: Stable Briseyda Aguirre Jul 15, 2017 11:18
== END 2017-07-15 11:30 | disposition home or self-care (01) ==
LOC: NEPK 11:07
DX: Z48.02 Encounter for removal of sutures (principal)
CPT/HCPCS: 99281